=== PATIENT | female | born 1950 | race Caucasian/White ===

== ENCOUNTER 2017-09-28 16:51 | Inpatient (IN) ==
[2017-09-28] MEDS ORDERED: SODIUM CHLORIDE 0.9% 500 ML IV STA (17:18)
[2017-09-28 17:54] LABS: Basophils % 0.1 % (0.0-0.8); Eosinophils % 0.4 % (0.00-10.9); Hematocrit 33.8 VOL% (35.7-47.0); Hemoglobin 10.5 GM/DL (12.0-16.0); Immature Granulocytes % 0.6 %; Immature Granulocytes Absolute 0.05 #; Lymphocytes # 0.6 10*3/uL (1.4-4.0); Lymphocytes % 7.6 % (21.3-54.2); Mean Corpuscular HGB Conc 31.1 GM/DL (32-36); Mean Corpuscular Hemoglobin 29 PG (27-34); Mean Corpuscular Volume 93.9 FL (87-102); Monocytes # 0.4 10*3/uL (0.11-0.8); Monocytes % 4.8 % (1.7-12.7); Neutrophils # 7.3 10*3/uL (1.4-7.4); Neutrophils % 86.5 % (38.7-73.9); Platelet Count 221 T/CUMM (130-400); Red Cell Distribution Width 15.9 % (9.3-17.3); White Blood Count 8.4 T/CUMM (4-12)
[2017-09-28 18:00] LABS: INR 0.9; PT Patient Result 9.4 SECS
[2017-09-28 18:24] LABS: Alanine Aminotransferase 27 U/L (13-56); Albumin 3.4 G/DL (3.4-5.0); Alkaline Phosphatase 65 U/L (45-117); Aspartate Amino Transferase 25 U/L (0-37); Bilirubin,Total < 0.39 MG/DL (0.2-1.0); Blood Urea Nitrogen 34 MG/DL (7-18); Glucose 129 MG/DL (74-106); Osmolality,Calculated 288.4 MOS/KG (273-304); Sodium 140 MMOL/L (136-145); Total Protein 7.1 G/DL (6.4-8.3)
[2017-09-28 18:25] LABS: Potassium 6.1 MMOL/L (3.5-5.1)
[2017-09-28] MEDS ORDERED: CALCIUM CHLORIDE 1,000 MG/10 ML SYRINGE IV STA (18:30)
[2017-09-28] MEDS ORDERED: SODIUM POLYSTYRENE SULFATE 15 GM/60 ML BOTTLE PO STA (18:31)
[2017-09-28] MEDS ORDERED: ACETAMINOPHEN 325 MG TABLET PO PRN (19:47)
[2017-09-28] MEDS ORDERED: GLUCAGON 1 MG VIAL IM PRN (19:47)
[2017-09-28] MEDS ORDERED: DEXTROSE 50% 25 GM/50 ML VIAL IV PRN (19:47)
[2017-09-28] MEDS: ALBUTEROL/IPRATROPIUM 3 ML NEB RESP TX SCH (21:00)
[2017-09-28] MEDS ORDERED: ALBUTEROL 2.5 MG/3 ML NEB RESP TX PRN (21:00)
[2017-09-28] MEDS ORDERED: levETIRAcetam 500 MG TABLET PO SCH (21:00)
[2017-09-28] MEDS: SODIUM CHLORIDE 0.9% 1,000 ML IV SCH (21:02)
[2017-09-28] MEDS: ASPIRIN EC 81 MG TABLET PO SCH (21:46)
[2017-09-28] MEDS: NIACIN 500 MG TABLET PO SCH (21:46)
[2017-09-28] MEDS: METOPROLOL TARTRATE 25 MG TABLET PO SCH (21:46)
[2017-09-28] MEDS: THEOPHYLLINE ER 300 MG TABLET PO SCH (21:47)
[2017-09-28] MEDS: ENOXAPARIN 40 MG/0.4 ML SYRINGE SUBCUT SCH (21:48)
[2017-09-29] MEDS ORDERED: IPRATROPIUM 500 MCG/2.5 ML NEB RESP TX PRN
[2017-09-29] MEDS: INSULIN LISPRO 100 UNIT/ML SUBCUT SCH ×6 (00:25→20:35)
[2017-09-29] MEDS: ALBUTEROL/IPRATROPIUM 3 ML NEB RESP TX SCH ×4 (01:00→18:59)
[2017-09-29] MEDS: SODIUM CHLORIDE 0.9% 1,000 ML IV SCH ×2 (05:03→13:33)
[2017-09-29 05:33] LABS: Basophils % 0.2 % (0.0-0.8); Eosinophils # 0.2 10*3/uL (0.0-0.87); Eosinophils % 2.6 % (0.00-10.9); Hematocrit 27.2 VOL% (35.7-47.0); Immature Granulocytes % 0.5 %; Immature Granulocytes Absolute 0.03 #; Lymphocytes # 1.4 10*3/uL (1.4-4.0); Lymphocytes % 21.6 % (21.3-54.2); Mean Corpuscular HGB Conc 31.3 GM/DL (32-36); Mean Corpuscular Hemoglobin 29 PG (27-34); Mean Corpuscular Volume 93.5 FL (87-102); Mean Platelet Volume 10.5 FL (9.6-12.0); Monocytes # 0.4 10*3/uL (0.11-0.8); Monocytes % 5.6 % (1.7-12.7); Neutrophils # 4.5 10*3/uL (1.4-7.4); Neutrophils % 69.5 % (38.7-73.9); Platelet Count 178 T/CUMM (130-400); Red Blood Count 2.91 MC/CUMM (3.8-5.5); Red Cell Distribution Width 15.9 % (9.3-17.3); White Blood Count 6.5 T/CUMM (4-12)
[2017-09-29 05:49] LABS: Hemoglobin 8.5 GM/DL (12.0-16.0)
[2017-09-29 05:57] LABS: Blood Urea Nitrogen 27 MG/DL (7-18); Calcium 8.7 MG/DL (8.5-10.1); Glucose 86 MG/DL (74-106); Osmolality,Calculated 289.8 MOS/KG (273-304); Potassium 5.1 MMOL/L (3.5-5.1); Sodium 144 MMOL/L (136-145)
[2017-09-29 06:03] LABS: Risk Ratio 1.75; Thyroid Stimulating Hormone 0.868 uIU/ml (0.358-3.74); VLDL CHOLESTEROL 11.8 MG/DL
[2017-09-29] MEDS ORDERED: Fluticasone/Vilanterol [Breo Ellipta 200-25 Mcg Inh] INH SCH (09:00)
[2017-09-29] MEDS: METOPROLOL TARTRATE 25 MG TABLET PO SCH ×2 (10:11→21:00)
[2017-09-29] MEDS: PANTOPRAZOLE 40 MG TABLET PO SCH ×2 (10:12)
[2017-09-29] MEDS: ROSUVASTATIN 10 MG TABLET PO SCH (10:12)
[2017-09-29] MEDS: amLODIPine 5 MG TABLET PO SCH (10:12)
[2017-09-29] MEDS: THEOPHYLLINE ER 300 MG TABLET PO SCH ×2 (10:12→18:14)
[2017-09-29] MEDS: MONTELUKAST 10 MG TABLET PO SCH (10:12)
[2017-09-29] MEDS: MULTIVITAMIN (CENTRUM) TABLET PO SCH (10:12)
[2017-09-29] MEDS: FERROUS SULFATE 325 MG TABLET PO SCH (10:12)
[2017-09-29] MEDS ORDERED: metFORMIN 500 MG TABLET PO SCH (17:00)
[2017-09-29] MEDS: ASPIRIN EC 81 MG TABLET PO SCH (21:00)
[2017-09-29] MEDS ORDERED: INSULIN GLARGINE 100 UNIT/ML SUBCUT SCH (21:00)
[2017-09-29] MEDS: ENOXAPARIN 40 MG/0.4 ML SYRINGE SUBCUT SCH (21:02)
[2017-09-29] MEDS: NIACIN 500 MG TABLET PO SCH (21:02)
[2017-09-30] MEDS: INSULIN LISPRO 100 UNIT/ML SUBCUT SCH ×6 (01:02→20:26)
[2017-09-30] MEDS: ALBUTEROL/IPRATROPIUM 3 ML NEB RESP TX SCH ×4 (01:48→19:32)
[2017-09-30] MEDS: SODIUM CHLORIDE 0.9% 1,000 ML IV SCH ×2 (03:47→04:59)
[2017-09-30] MEDS: ONDANSETRON 4 MG/2 ML VIAL IV PRN ×3 (07:57→16:39)
[2017-09-30] MEDS: METOPROLOL TARTRATE 25 MG TABLET PO SCH ×2 (10:29→20:22)
[2017-09-30 13:18] LABS: % Iron Saturation 4.7 % (18-50); Ferritin 20.3 ng/ml (8-252)
[2017-09-30] MEDS: MULTIVITAMIN (CENTRUM) TABLET PO SCH (16:45)
[2017-09-30] MEDS: THEOPHYLLINE ER 300 MG TABLET PO SCH ×2 (16:45→18:14)
[2017-09-30] MEDS: ROSUVASTATIN 10 MG TABLET PO SCH (16:46)
[2017-09-30] MEDS: PANTOPRAZOLE 40 MG TABLET PO SCH ×2 (16:46)
[2017-09-30] MEDS: MONTELUKAST 10 MG TABLET PO SCH (16:46)
[2017-09-30] MEDS: FERROUS SULFATE 325 MG TABLET PO SCH (16:46)
[2017-09-30] MEDS: amLODIPine 5 MG TABLET PO SCH ×2 (19:09→20:22)
[2017-09-30] MEDS: NIACIN 500 MG TABLET PO SCH (20:23)
[2017-09-30] MEDS: ENOXAPARIN 40 MG/0.4 ML SYRINGE SUBCUT SCH (20:23)
[2017-09-30] MEDS: ASPIRIN EC 81 MG TABLET PO SCH (20:23)
[2017-10-01] MEDS: ALBUTEROL/IPRATROPIUM 3 ML NEB RESP TX SCH ×4 (01:19→19:01)
[2017-10-01] MEDS: INSULIN LISPRO 100 UNIT/ML SUBCUT SCH ×6 (05:03→20:13)
[2017-10-01] MEDS ORDERED: ceFAZolin 1,000 MG in SYRINGE 1 EACH IV ONE (06:30)
[2017-10-01] MEDS ORDERED: BACITRACIN OINT 0.9 GM PACK TOP ONE (06:53)
[2017-10-01 07:23] LABS: Basophils % 0.2 % (0.0-0.8); Hemoglobin 9.2 GM/DL (12.0-16.0); Immature Granulocytes % 0.9 %; Immature Granulocytes Absolute 0.09 #; Lymphocytes # 0.7 10*3/uL (1.4-4.0); Mean Corpuscular HGB Conc 31.7 GM/DL (32-36); Mean Corpuscular Hemoglobin 29 PG (27-34); Mean Corpuscular Volume 91.8 FL (87-102); Mean Platelet Volume 9.9 FL (9.6-12.0); Monocytes # 0.8 10*3/uL (0.11-0.8); Monocytes % 7.9 % (1.7-12.7); Neutrophils # 8.5 10*3/uL (1.4-7.4); Platelet Count 185 T/CUMM (130-400); Red Blood Count 3.16 MC/CUMM (3.8-5.5); Red Cell Distribution Width 15.6 % (9.3-17.3); White Blood Count 10.1 T/CUMM (4-12)
[2017-10-01 07:53] LABS: Calcium 8.2 MG/DL (8.5-10.1); Osmolality,Calculated 283.4 MOS/KG (273-304); Potassium 3.8 MMOL/L (3.5-5.1)
[2017-10-01] MEDS ORDERED: BUPIVACAINE SPINAL 0.75% 2 ML AMP SPINAL ONE (08:26)
[2017-10-01] MEDS ORDERED: KETOROLAC 15 MG/1 ML VIAL IV PRN (09:47)
[2017-10-01] MEDS ORDERED: MAGNESIUM HYDROXIDE SUSP 30 ML UDCUP PO PRN (09:47)
[2017-10-01] MEDS ORDERED: MORPHINE 4 MG/1 ML VIAL IV PRN (09:47)
[2017-10-01] MEDS ORDERED: ROPIVACAINE 0.5% 30 ML VIAL ONE (09:53)
[2017-10-01] MEDS ORDERED: PROPOFOL 200 MG/20 ML VIAL IV ONE (10:34)
[2017-10-01] MEDS ORDERED: ACETAMINOPHEN 1,000 MG/100 ML VIAL IV ONE (10:35)
[2017-10-01] MEDS ORDERED: SODIUM CHLORIDE 0.9% 100 ML IV ONE (10:35)
[2017-10-01] MEDS ORDERED: fentaNYL 100 MCG/2 ML VIAL ONE (10:35)
[2017-10-01] MEDS ORDERED: MIDAZOLAM 2 MG/2 ML VIAL ONE (10:35)
[2017-10-01] MEDS ORDERED: ONDANSETRON 4 MG/2 ML VIAL ONE (10:36)
[2017-10-01] MEDS: FERROUS SULFATE 325 MG TABLET PO SCH (10:57)
[2017-10-01] MEDS: THEOPHYLLINE ER 300 MG TABLET PO SCH ×2 (10:57→17:27)
[2017-10-01] MEDS: MULTIVITAMIN (CENTRUM) TABLET PO SCH (10:58)
[2017-10-01] MEDS: MONTELUKAST 10 MG TABLET PO SCH (10:58)
[2017-10-01] MEDS: PANTOPRAZOLE 40 MG TABLET PO SCH ×2 (10:58→12:50)
[2017-10-01] MEDS: ROSUVASTATIN 10 MG TABLET PO SCH (10:58)
[2017-10-01] MEDS: amLODIPine 5 MG TABLET PO SCH ×2 (10:59→20:13)
[2017-10-01] MEDS: METOPROLOL TARTRATE 25 MG TABLET PO SCH ×2 (10:59→20:13)
[2017-10-01] MEDS ORDERED: DEXTROSE 50% 25 GM/50 ML VIAL IV PRN (15:59)
[2017-10-01] MEDS: ceFAZolin 1,000 MG in SYRINGE 1 EACH IV SCH (17:18)
[2017-10-01] MEDS: ENOXAPARIN 40 MG/0.4 ML SYRINGE SUBCUT SCH (20:12)
[2017-10-01] MEDS: ASPIRIN EC 81 MG TABLET PO SCH (20:13)
[2017-10-01] MEDS: IRON (CARBONYL) 45 MG TABLET PO SCH (20:16)
[2017-10-01] MEDS: NIACIN 500 MG TABLET PO SCH (21:43)
[2017-10-02] MEDS: INSULIN LISPRO 100 UNIT/ML SUBCUT SCH ×4 (00:15→12:43)
[2017-10-02] MEDS: ceFAZolin 1,000 MG in SYRINGE 1 EACH IV SCH (00:16)
[2017-10-02] MEDS: ALBUTEROL/IPRATROPIUM 3 ML NEB RESP TX SCH ×2 (00:51→07:25)
[2017-10-02] MEDS: SODIUM CHLORIDE 0.9% 1,000 ML IV SCH ×2 (06:39→12:42)
[2017-10-02] MEDS: ONDANSETRON 4 MG/2 ML VIAL IV PRN (07:09)
[2017-10-02 09:05] VITALS: BP 132/70
[2017-10-02] MEDS: MULTIVITAMIN (CENTRUM) TABLET PO SCH (09:43)
[2017-10-02] MEDS: FERROUS SULFATE 325 MG TABLET PO SCH (09:43)
[2017-10-02] MEDS: MONTELUKAST 10 MG TABLET PO SCH (09:43)
[2017-10-02] MEDS: amLODIPine 5 MG TABLET PO SCH (09:43)
[2017-10-02] MEDS: ROSUVASTATIN 10 MG TABLET PO SCH (09:43)
[2017-10-02] MEDS: PANTOPRAZOLE 40 MG TABLET PO SCH ×2 (09:43→09:44)
[2017-10-02] MEDS: METOPROLOL TARTRATE 25 MG TABLET PO SCH (09:43)
[2017-10-02] MEDS: THEOPHYLLINE ER 300 MG TABLET PO SCH (09:43)
[2017-10-02] MEDS: IRON (CARBONYL) 45 MG TABLET PO SCH (09:44)
== END 2017-10-02 12:42 | disposition home or self-care (01) | DRG 983 ==
LOC: EDBD → EDUNIT# → N.EDINP 16:51 → N.ED 16:51 → SUATTDRO 18:50 → N.4E 20:16
PROVIDERS: ADMIT Internal Medicine; ATTEND Internal Medicine

== ENCOUNTER 2020-01-12 13:50 | Inpatient (IN) ==
[2020-01-12] MEDS ORDERED: SODIUM CHLORIDE 0.9% 500 ML IV STA (14:21)
[2020-01-12] MEDS ORDERED: LORazepam 2 MG/1 ML VIAL IV STA (14:21)
[2020-01-12 14:55] LABS: Basophils % 0.3 % (0.0-0.8); Hematocrit 31.4 VOL% (35.7-47.0); Immature Granulocytes % 0.7 %; Immature Granulocytes Absolute 0.05 #; Lymphocytes # 0.3 10*3/uL (1.4-4.0); Lymphocytes % 3.6 % (21.3-54.2); Mean Corpuscular HGB Conc 31.8 GM/DL (32-36); Mean Corpuscular Volume 94.9 FL (87-102); Mean Platelet Volume 9.9 FL (9.6-12.0); Monocytes % 8.5 % (1.7-12.7); Neutrophils % 86.9 % (38.7-73.9); Platelet Count 173 T/CUMM (130-400); Red Blood Count 3.31 MC/CUMM (3.8-5.5); Red Cell Distribution Width 13.8 % (9.3-17.3)
[2020-01-12 15:18] LABS: Alanine Aminotransferase 9 U/L (13-56); Albumin 2.9 G/DL (3.4-5.0); Alkaline Phosphatase 107 U/L (45-117); Aspartate Amino Transferase 20 U/L (0-37); Bilirubin,Total < 0.39 MG/DL (0.2-1.0); Blood Urea Nitrogen 84 MG/DL (7-18); Calcium 8.1 MG/DL (8.5-10.1); Estimated Glom Filtration Rate 3 ML/MIN; Glucose 359 MG/DL (74-106); Osmolality,Calculated 309.1 MOS/KG (273-304); Troponin I < 0.015 NG/ML (0.00-0.045)
[2020-01-12 15:21] LABS: Lymphocytes 3 % (20-55); Segmented Neutrophils 89 % (50-85); Total Cells Counted 100
[2020-01-12 15:23] LABS: Anisocytosis Slight; Hypochromasia Slight
[2020-01-12 15:24] LABS: Platelet Estimate Adequate; Polychromasia Slight
[2020-01-12] MEDS ORDERED: SODIUM CHLORIDE 0.9% 1,000 ML IV STA ×2 (15:27→15:46)
[2020-01-12] MEDS ORDERED: SODIUM BICARBONATE 50 MEQ/50 ML VIAL IV STA (15:31)
[2020-01-12] MEDS ORDERED: INSULIN REGULAR 100 UNIT/ML SUBCUT STA (15:33)
[2020-01-12 16:09] LABS: Bilirubin,Urine Negative (Negative); Blood, Urine Small mg/dL (Negative); Glucose,Urine (UA) Negative (Negative); Ketones,Urine Negative (Negative); Nitrite,Urine Negative (Negative); Protein,Urine 30 MG/DL; RBC,Urine 7 /HPF (0-4); Squamous Epithelial Cell,Urine Occasional /HPF (0-10); Urine Appearance CLOUDY (Clear); Urine Color Yellow (Yellow); Urine Specific Gravity 1.014 (1.001-1.035); Urine Urobilinogen < 2.0 EU/DL (0.2-1.0); WBC,Urine 32 /HPF (0-6)
[2020-01-12 16:28] LABS: Barbiturates Screen,Urine Negative (Negative); Benzodiazepines Screen,Urine Negative (Negative); Cannabinoid Screen,Urine Negative (Negative); Opiate Screen,Urine Positive (Negative); Phencyclidine Screen,Urine Negative (Negative)
[2020-01-12 17:15] LABS: ABG Base Excess -15.3 MMOL/L (-2.5-2.5); ABG HCO3 12.6 MMOL/L (20-26); ABG PCO2 47.7 MM HG (35-48); ABG PO2 74.2 MM HG (80-95); ABG TCO2 13.9 MMOL/L (23-27); Allen Test Positive
[2020-01-12 17:17] LABS: ABG PH 7.084 (7.35-7.45)
[2020-01-12 19:25] LABS: Calcium 7.5 MG/DL (8.5-10.1); Osmolality,Calculated 306.1 MOS/KG (273-304)
[2020-01-12] MEDS ORDERED: DEXTROSE 50% 25 GM/50 ML VIAL IV PRN (19:55)
[2020-01-12] MEDS ORDERED: GLUCAGON 1 MG VIAL IM PRN (19:55)
[2020-01-12] MEDS ORDERED: ALBUTEROL 2.5 MG/3 ML NEB RESP TX PRN (20:01)
[2020-01-12] MEDS ORDERED: INSULIN LISPRO 100 UNIT/ML SUBCUT SCH ×3 (20:05→22:00)
[2020-01-12] MEDS: SODIUM BICARB INJ 100 MEQ in STERILE WATER INJ 1,000 ML IV SCH (20:50)
[2020-01-12] MEDS: INSULIN LISPRO 100 UNIT/ML SUBCUT SCH (21:23)
[2020-01-12] MEDS: ASPIRIN EC 81 MG TABLET PO SCH (21:24)
[2020-01-12] MEDS: ENOXAPARIN 30 MG/0.3 ML SYRINGE SUBCUT SCH (21:30)
[2020-01-12] MEDS: HYDROCORTISONE 100 MG VIAL IV SCH (21:30)
[2020-01-13] MEDS: INSULIN LISPRO 100 UNIT/ML SUBCUT SCH ×7 (00:53→23:21)
[2020-01-13 03:51] LABS: Basophils % 0.2 % (0.0-0.8); Hematocrit 27.8 VOL% (35.7-47.0); Hemoglobin 9.2 GM/DL (12.0-16.0); Immature Granulocytes % 0.7 %; Immature Granulocytes Absolute 0.04 #; Lymphocytes # 0.3 10*3/uL (1.4-4.0); Lymphocytes % 5.3 % (21.3-54.2); Mean Corpuscular HGB Conc 33.1 GM/DL (32-36); Mean Corpuscular Volume 94.2 FL (87-102); Mean Platelet Volume 9.9 FL (9.6-12.0); Monocytes % 7.2 % (1.7-12.7); Neutrophils % 86.6 % (38.7-73.9); Platelet Count 128 T/CUMM (130-400); Red Blood Count 2.95 MC/CUMM (3.8-5.5); Red Cell Distribution Width 13.9 % (9.3-17.3); White Blood Count 5.7 T/CUMM (4-12)
[2020-01-13 04:13] LABS: Alanine Aminotransferase < 9 U/L (13-56); Albumin 2.3 G/DL (3.4-5.0); Alkaline Phosphatase 90 U/L (45-117); Aspartate Amino Transferase 19 U/L (0-37); Bilirubin,Total < 0.39 MG/DL (0.2-1.0); Blood Urea Nitrogen 76 MG/DL (7-18); Calcium 7.3 MG/DL (8.5-10.1); Estimated Glom Filtration Rate 3 ML/MIN; Glucose 152 MG/DL (74-106); Osmolality,Calculated 298.8 MOS/KG (273-304); Total Protein 5.6 G/DL (6.4-8.3); Troponin I 0.016 NG/ML (0.00-0.045)
[2020-01-13] MEDS: HYDROCORTISONE 100 MG VIAL IV SCH (04:50)
[2020-01-13] MEDS: IPRATROPIUM 500 MCG/2.5 ML NEB RESP TX SCH ×4 (07:06→19:39)
[2020-01-13] MEDS: SODIUM BICARB INJ 100 MEQ in STERILE WATER INJ 1,000 ML IV SCH ×2 (07:07→17:30)
[2020-01-13] MEDS: THEOPHYLLINE ER 300 MG TABLET PO SCH ×2 (09:18→18:20)
[2020-01-13] MEDS: PANTOPRAZOLE 40 MG TABLET PO SCH (09:18)
[2020-01-13] MEDS: methylPREDNISolone SOD SUC 125 MG/2 ML VIAL IV SCH ×2 (11:49→22:20)
[2020-01-13] MEDS: ASPIRIN EC 81 MG TABLET PO SCH (20:36)
[2020-01-13] MEDS: ENOXAPARIN 30 MG/0.3 ML SYRINGE SUBCUT SCH (20:36)
[2020-01-14 04:01] LABS: Hematocrit 27.4 VOL% (35.7-47.0); Immature Granulocytes % 0.3 %; Immature Granulocytes Absolute 0.02 #; Lymphocytes # 0.2 10*3/uL (1.4-4.0); Lymphocytes % 3.5 % (21.3-54.2); Mean Corpuscular HGB Conc 32.8 GM/DL (32-36); Mean Corpuscular Volume 91.9 FL (87-102); Monocytes % 1.7 % (1.7-12.7); Neutrophils % 94.5 % (38.7-73.9); Platelet Count 164 T/CUMM (130-400); Red Blood Count 2.98 MC/CUMM (3.8-5.5); Red Cell Distribution Width 13.7 % (9.3-17.3); White Blood Count 5.7 T/CUMM (4-12)
[2020-01-14 04:21] LABS: Calcium 7.9 MG/DL (8.5-10.1)
[2020-01-14 04:25] LABS: Lymphocytes 4 % (20-55); Platelet Estimate Adequate; Segmented Neutrophils 94 % (50-85); Total Cells Counted 100
[2020-01-14 04:26] LABS: Hypochromasia 1+; Microcytosis 1+
[2020-01-14] MEDS: SODIUM BICARB INJ 100 MEQ in STERILE WATER INJ 1,000 ML IV SCH (05:25)
[2020-01-14] MEDS: INSULIN LISPRO 100 UNIT/ML SUBCUT SCH ×5 (05:35→21:36)
[2020-01-14] MEDS: IPRATROPIUM 500 MCG/2.5 ML NEB RESP TX SCH ×4 (07:34→19:36)
[2020-01-14] MEDS: THEOPHYLLINE ER 300 MG TABLET PO SCH ×2 (08:05→16:59)
[2020-01-14] MEDS: PANTOPRAZOLE 40 MG TABLET PO SCH (08:05)
[2020-01-14] MEDS: methylPREDNISolone SOD SUC 125 MG/2 ML VIAL IV SCH (11:20)
[2020-01-14] MEDS: SODIUM BICARBONATE 650 MG TABLET PO SCH ×2 (14:34→21:36)
[2020-01-14] MEDS: ESCITALOPRAM 10 MG TABLET PO SCH (21:36)
[2020-01-14] MEDS: ENOXAPARIN 30 MG/0.3 ML SYRINGE SUBCUT SCH (21:36)
[2020-01-14] MEDS: ASPIRIN EC 81 MG TABLET PO SCH (21:36)
[2020-01-15] MEDS: methylPREDNISolone SOD SUC 125 MG/2 ML VIAL IV SCH ×3 (01:37→22:31)
[2020-01-15 05:59] LABS: Hemoglobin 8.4 GM/DL (12.0-16.0); Immature Granulocytes % 0.6 %; Immature Granulocytes Absolute 0.03 #; Lymphocytes # 0.2 10*3/uL (1.4-4.0); Lymphocytes % 4.2 % (21.3-54.2); Mean Corpuscular HGB Conc 33.6 GM/DL (32-36); Mean Corpuscular Volume 89.9 FL (87-102); Monocytes % 3.8 % (1.7-12.7); Neutrophils % 91.4 % (38.7-73.9); Platelet Count 161 T/CUMM (130-400); Red Blood Count 2.78 MC/CUMM (3.8-5.5); Red Cell Distribution Width 13.3 % (9.3-17.3); White Blood Count 4.7 T/CUMM (4-12)
[2020-01-15 06:16] LABS: Calcium 7.7 MG/DL (8.5-10.1); Osmolality,Calculated 312.8 MOS/KG (273-304)
[2020-01-15 06:33] LABS: Hypochromasia 1+; Lymphocytes 5 % (20-55); Microcytosis 1+; Platelet Estimate Adequate; Segmented Neutrophils 93 % (50-85); Total Cells Counted 100
[2020-01-15] MEDS: IPRATROPIUM 500 MCG/2.5 ML NEB RESP TX SCH ×4 (07:14→18:48)
[2020-01-15] MEDS: INSULIN LISPRO 100 UNIT/ML SUBCUT SCH ×4 (08:17→22:29)
[2020-01-15] MEDS: PANTOPRAZOLE 40 MG TABLET PO SCH (08:19)
[2020-01-15] MEDS: THEOPHYLLINE ER 300 MG TABLET PO SCH ×2 (08:19→16:49)
[2020-01-15] MEDS: SODIUM BICARBONATE 650 MG TABLET PO SCH ×3 (08:19→22:29)
[2020-01-15] MEDS: ASPIRIN EC 81 MG TABLET PO SCH (22:29)
[2020-01-15] MEDS: ESCITALOPRAM 10 MG TABLET PO SCH (22:29)
[2020-01-15] MEDS: ENOXAPARIN 30 MG/0.3 ML SYRINGE SUBCUT SCH (22:30)
[2020-01-16 05:53] LABS: Hemoglobin 8.3 GM/DL (12.0-16.0); Immature Granulocytes % 0.5 %; Immature Granulocytes Absolute 0.02 #; Lymphocytes # 0.2 10*3/uL (1.4-4.0); Lymphocytes % 4.6 % (21.3-54.2); Mean Corpuscular HGB Conc 33.2 GM/DL (32-36); Mean Corpuscular Volume 91.6 FL (87-102); Mean Platelet Volume 10.1 FL (9.6-12.0); Monocytes % 3.3 % (1.7-12.7); Neutrophils % 91.6 % (38.7-73.9); Platelet Count 167 T/CUMM (130-400); Red Blood Count 2.73 MC/CUMM (3.8-5.5); Red Cell Distribution Width 13.4 % (9.3-17.3); White Blood Count 3.7 T/CUMM (4-12)
[2020-01-16 06:06] LABS: Calcium 7.7 MG/DL (8.5-10.1); Osmolality,Calculated 311.5 MOS/KG (273-304)
[2020-01-16 06:19] LABS: Hypochromasia 1+; Lymphocytes 2 % (20-55); Microcytosis 1+; Nucleated Red Blood Cells 1 (0-5); Platelet Estimate Adequate; Segmented Neutrophils 96 % (50-85); Total Cells Counted 100
[2020-01-16] MEDS: IPRATROPIUM 500 MCG/2.5 ML NEB RESP TX SCH ×4 (07:49→19:36)
[2020-01-16] MEDS: THEOPHYLLINE ER 300 MG TABLET PO SCH ×2 (08:59→16:26)
[2020-01-16] MEDS: SODIUM BICARBONATE 650 MG TABLET PO SCH ×3 (09:00→21:18)
[2020-01-16] MEDS: PANTOPRAZOLE 40 MG TABLET PO SCH (09:00)
[2020-01-16] MEDS: INSULIN LISPRO 100 UNIT/ML SUBCUT SCH ×4 (09:00→21:22)
[2020-01-16] MEDS: methylPREDNISolone SOD SUC 125 MG/2 ML VIAL IV SCH (12:33)
[2020-01-16] MEDS: methylPREDNISolone SOD SUC 40 MG/1 ML VIAL IV SCH (20:45)
[2020-01-16] MEDS: ENOXAPARIN 30 MG/0.3 ML SYRINGE SUBCUT SCH (21:18)
[2020-01-16] MEDS: ESCITALOPRAM 10 MG TABLET PO SCH (21:18)
[2020-01-16] MEDS: ASPIRIN EC 81 MG TABLET PO SCH (21:18)
[2020-01-17 05:51] LABS: Hematocrit 25.3 VOL% (35.7-47.0); Hemoglobin 8.3 GM/DL (12.0-16.0); Immature Granulocytes % 0.6 %; Immature Granulocytes Absolute 0.02 #; Lymphocytes # 0.1 10*3/uL (1.4-4.0); Mean Corpuscular HGB Conc 32.8 GM/DL (32-36); Mean Corpuscular Volume 91.3 FL (87-102); Mean Platelet Volume 9.7 FL (9.6-12.0); Monocytes % 6.6 % (1.7-12.7); Neutrophils % 88.8 % (38.7-73.9); Platelet Count 175 T/CUMM (130-400); Red Blood Count 2.77 MC/CUMM (3.8-5.5); Red Cell Distribution Width 13.3 % (9.3-17.3); White Blood Count 3.5 T/CUMM (4-12)
[2020-01-17 06:07] LABS: Calcium 7.8 MG/DL (8.5-10.1); Osmolality,Calculated 307.7 MOS/KG (273-304)
[2020-01-17 06:09] LABS: Uric Acid 7.8 MG/DL (2.6-6.0)
[2020-01-17 06:21] LABS: Lymphocytes 4 % (20-55); Platelet Estimate Normal; Segmented Neutrophils 91 % (50-85); Total Cells Counted 100
[2020-01-17 06:22] LABS: Hypochromasia 1+
[2020-01-17] MEDS: IPRATROPIUM 500 MCG/2.5 ML NEB RESP TX SCH ×4 (07:58→19:00)
[2020-01-17] MEDS: THEOPHYLLINE ER 300 MG TABLET PO SCH ×2 (08:10→16:40)
[2020-01-17] MEDS: methylPREDNISolone SOD SUC 40 MG/1 ML VIAL IV SCH ×2 (08:10→20:11)
[2020-01-17] MEDS: PANTOPRAZOLE 40 MG TABLET PO SCH (08:10)
[2020-01-17] MEDS: INSULIN LISPRO 100 UNIT/ML SUBCUT SCH ×4 (08:10→20:34)
[2020-01-17] MEDS: SODIUM BICARBONATE 650 MG TABLET PO SCH ×2 (08:10→16:39)
[2020-01-17 14:09] LABS: Bilirubin,Urine Negative (Negative); Blood, Urine Moderate mg/dL (Negative); Glucose,Urine (UA) 50 mg/dL (Negative); Ketones,Urine Negative (Negative); Mucus,Urine Occasional /LPF (Occasional); Nitrite,Urine Negative (Negative); Protein,Urine Negative; RBC,Urine 8 /HPF (0-4); Squamous Epithelial Cell,Urine Occasional /HPF (0-10); Urine Appearance CLOUDY (Clear); Urine Color Yellow (Yellow); Urine Specific Gravity 1.012 (1.001-1.035); Urine Urobilinogen < 2.0 EU/DL (0.2-1.0); WBC,Urine 601 /HPF (0-6)
[2020-01-17] MEDS ORDERED: MAGNESIUM SULF RIDER 4 GM in PREMIX 1 EACH IV PRN (14:15)
[2020-01-17] MEDS ORDERED: MAGNESIUM SULF RIDER 2 GM in PREMIX 1 EACH IV PRN (14:15)
[2020-01-17] MEDS ORDERED: POTASSIUM CHLORIDE RIDER 10 MEQ in PREMIX 1 EACH IV PRN (14:15)
[2020-01-17] MEDS: POTASSIUM CHLORIDE 20 MEQ TABLET PO PRN ×3 (14:48→18:38)
[2020-01-17] MEDS: ESCITALOPRAM 10 MG TABLET PO SCH (20:11)
[2020-01-17] MEDS: ASPIRIN EC 81 MG TABLET PO SCH (20:11)
[2020-01-17] MEDS: ENOXAPARIN 30 MG/0.3 ML SYRINGE SUBCUT SCH (20:12)
[2020-01-18 06:01] LABS: Hematocrit 27.2 VOL% (35.7-47.0); Hemoglobin 8.6 GM/DL (12.0-16.0); Immature Granulocytes % 0.5 %; Immature Granulocytes Absolute 0.02 #; Lymphocytes # 0.2 10*3/uL (1.4-4.0); Lymphocytes % 4.4 % (21.3-54.2); Mean Corpuscular HGB Conc 31.6 GM/DL (32-36); Mean Corpuscular Volume 93.5 FL (87-102); Mean Platelet Volume 9.8 FL (9.6-12.0); Monocytes % 8.1 % (1.7-12.7); Platelet Count 191 T/CUMM (130-400); Red Blood Count 2.91 MC/CUMM (3.8-5.5); Red Cell Distribution Width 13.2 % (9.3-17.3); White Blood Count 3.8 T/CUMM (4-12)
[2020-01-18 06:24] LABS: Hypochromasia 1+; Lymphocytes 8 % (20-55); Microcytosis 1+; Myelocytes 1 %; Segmented Neutrophils 84 % (50-85); Total Cells Counted 100
[2020-01-18 06:25] LABS: Platelet Estimate Adequate
[2020-01-18 06:26] LABS: Albumin 2.2 G/DL (3.4-5.0); Osmolality,Calculated 311.4 MOS/KG (273-304); Total Protein 5.5 G/DL (6.4-8.3)
[2020-01-18] MEDS: IPRATROPIUM 500 MCG/2.5 ML NEB RESP TX SCH ×4 (07:20→19:17)
[2020-01-18] MEDS ORDERED: ONDANSETRON 4 MG/2 ML VIAL IV PRN (08:10)
[2020-01-18] MEDS: INSULIN LISPRO 100 UNIT/ML SUBCUT SCH ×4 (09:06→22:53)
[2020-01-18] MEDS: methylPREDNISolone SOD SUC 40 MG/1 ML VIAL IV SCH ×2 (09:06→22:50)
[2020-01-18] MEDS: THEOPHYLLINE ER 300 MG TABLET PO SCH ×2 (09:06→17:28)
[2020-01-18] MEDS: PANTOPRAZOLE 40 MG TABLET PO SCH (09:06)
[2020-01-18] MEDS: ASPIRIN EC 81 MG TABLET PO SCH (22:53)
[2020-01-18] MEDS: ESCITALOPRAM 10 MG TABLET PO SCH (22:54)
[2020-01-18] MEDS: ENOXAPARIN 30 MG/0.3 ML SYRINGE SUBCUT SCH (22:54)
[2020-01-19] MEDS: IPRATROPIUM 500 MCG/2.5 ML NEB RESP TX SCH (07:17)
[2020-01-19 07:41] VITALS: BP 149/67
[2020-01-19 08:45] LABS: Calcium 8.2 MG/DL (8.5-10.1); Osmolality,Calculated 305.3 MOS/KG (273-304)
[2020-01-19] MEDS: THEOPHYLLINE ER 300 MG TABLET PO SCH (09:01)
[2020-01-19] MEDS: methylPREDNISolone SOD SUC 40 MG/1 ML VIAL IV SCH (09:01)
[2020-01-19] MEDS: INSULIN LISPRO 100 UNIT/ML SUBCUT SCH (09:01)
[2020-01-19] MEDS: PANTOPRAZOLE 40 MG TABLET PO SCH (09:01)
== END 2020-01-19 10:14 | disposition home health service (06) | DRG 682 ==
LOC: N.ED 13:50 → SUATTDRO 18:34 → N.EDINP 18:34 → N.ICU 19:56 → N.5E 01-14 14:29
PROVIDERS: ADMIT Internal Medicine; ATTEND Family Medicine

== ENCOUNTER 2020-03-06 00:33 | Inpatient (IN) ==
[2020-03-06 01:12] LABS: Basophils % 1.1 % (0.0-0.8); Eosinophils # 0.2 10*3/uL (0.0-0.87); Eosinophils % 4.7 % (0.00-10.9); Hematocrit 29.1 VOL% (35.7-47.0); Immature Granulocytes % 0.8 %; Immature Granulocytes Absolute 0.03 #; Lymphocytes # 0.8 10*3/uL (1.4-4.0); Lymphocytes % 20.1 % (21.3-54.2); Mean Corpuscular HGB Conc 30.9 GM/DL (32-36); Mean Platelet Volume 10.7 FL (9.6-12.0); Monocytes % 11.6 % (1.7-12.7); Neutrophils % 61.7 % (38.7-73.9); Platelet Count 203 T/CUMM (130-400); Red Blood Count 2.97 MC/CUMM (3.8-5.5); Red Cell Distribution Width 13.8 % (9.3-17.3); White Blood Count 3.8 T/CUMM (4-12)
[2020-03-06 01:33] LABS: Alanine Aminotransferase 17 U/L (13-56); Albumin 3.5 G/DL (3.4-5.0); Alkaline Phosphatase 86 U/L (45-117); Aspartate Amino Transferase 25 U/L (0-37); Bilirubin,Total < 0.39 MG/DL (0.2-1.0); Blood Urea Nitrogen 132 MG/DL (7-18); Carbon Dioxide 14 MMOL/L (21-32); Estimated Glom Filtration Rate 5 ML/MIN; Glucose 250 MG/DL (74-106); Osmolality,Calculated 318.2 MOS/KG (273-304); Potassium 5.3 MMOL/L (3.5-5.1); Sodium 134 MMOL/L (136-145); Total Protein 7.4 G/DL (6.4-8.3)
[2020-03-06] MEDS ORDERED: SODIUM CHLORIDE 0.9% 1,000 ML IV STA (01:41)
[2020-03-06] MEDS ORDERED: DEXTROSE 50% 25 GM/50 ML VIAL IV PRN ×2 (02:01)
[2020-03-06] MEDS ORDERED: GLUCAGON 1 MG VIAL IM PRN ×2 (02:01)
[2020-03-06] MEDS ORDERED: SODIUM POLYSTYRENE SULFATE 15 GM/60 ML BOTTLE PO STA (02:14)
[2020-03-06] MEDS ORDERED: SODIUM BICARB INJ 50 MEQ in SODIUM CHLORIDE 0.9% 1,000 ML IV SCH (02:30)
[2020-03-06] MEDS: SODIUM BICARB INJ 50 MEQ in DEXTROSE 5% 1,000 ML IV SCH ×3 (03:09→16:53)
[2020-03-06] MEDS ORDERED: ALBUTEROL 2.5 MG/3 ML NEB RESP TX PRN (03:11)
[2020-03-06 03:57] LABS: Basophils % 0.6 % (0.0-0.8); Eosinophils # 0.1 10*3/uL (0.0-0.87); Eosinophils % 2.5 % (0.00-10.9); Hematocrit 23.7 VOL% (35.7-47.0); Hemoglobin 7.4 GM/DL (12.0-16.0); Immature Granulocytes % 0.6 %; Immature Granulocytes Absolute 0.02 #; Lymphocytes # 0.5 10*3/uL (1.4-4.0); Lymphocytes % 13.3 % (21.3-54.2); Mean Corpuscular HGB Conc 31.2 GM/DL (32-36); Mean Corpuscular Volume 97.9 FL (87-102); Mean Platelet Volume 10.2 FL (9.6-12.0); Monocytes % 10.2 % (1.7-12.7); Neutrophils % 72.8 % (38.7-73.9); Platelet Count 158 T/CUMM (130-400); Red Blood Count 2.42 MC/CUMM (3.8-5.5); Red Cell Distribution Width 13.9 % (9.3-17.3); White Blood Count 3.6 T/CUMM (4-12)
[2020-03-06 04:18] LABS: Calcium 8.1 MG/DL (8.5-10.1); Osmolality,Calculated 322.8 MOS/KG (273-304); Potassium 5.6 MMOL/L (3.5-5.1)
[2020-03-06] MEDS: ALBUTEROL/IPRATROPIUM 3 ML NEB RESP TX SCH ×3 (07:19→19:21)
[2020-03-06] MEDS ORDERED: TIOTROPIUM BROMIDE INH SCH (09:00)
[2020-03-06] MEDS: INSULIN REGULAR 100 UNIT/ML SUBCUT SCH ×4 (10:23→22:30)
[2020-03-06] MEDS: METOPROLOL TARTRATE 25 MG TABLET PO SCH ×2 (11:25→22:30)
[2020-03-06] MEDS: PANTOPRAZOLE 40 MG TABLET PO SCH (11:25)
[2020-03-06] MEDS: FERROUS SULFATE 325 MG TABLET PO SCH (11:25)
[2020-03-06] MEDS: THEOPHYLLINE ER 300 MG TABLET PO SCH ×2 (11:25→17:02)
[2020-03-06] MEDS: MONTELUKAST 10 MG TABLET PO SCH (11:25)
[2020-03-06] MEDS: FLUTICASONE FUROATE INH SCH (11:58)
[2020-03-06] MEDS: VILANTEROL INH SCH (11:58)
[2020-03-06] MEDS ORDERED: MAGNESIUM SULF RIDER 4 GM in PREMIX 1 EACH IV ONE (15:27)
[2020-03-06] MEDS: ONDANSETRON 4 MG/2 ML VIAL IV PRN (17:02)
[2020-03-06] MEDS: INSULIN GLARGINE 100 UNIT/ML SUBCUT SCH (22:29)
[2020-03-06] MEDS: ASPIRIN EC 81 MG TABLET PO SCH (22:30)
[2020-03-07] MEDS: ALBUTEROL/IPRATROPIUM 3 ML NEB RESP TX SCH ×4 (01:48→19:30)
[2020-03-07 03:53] LABS: ABG Base Excess -10.2 MMOL/L (-2.5-2.5); ABG HCO3 16.2 MMOL/L (20-26); ABG Oxygen Saturation 99.5 % (95-100); ABG PCO2 32.8 MM HG (35-48); ABG PH 7.285 (7.35-7.45); ABG TCO2 14.8 MMOL/L (23-27); Allen Test Positive; Pt O2 Delivery Device Room Air
[2020-03-07 06:28] LABS: Basophils % 0.8 % (0.0-0.8); Eosinophils # 0.1 10*3/uL (0.0-0.87); Hematocrit 21.1 VOL% (35.7-47.0); Hemoglobin 6.8 GM/DL (12.0-16.0); Immature Granulocytes % 0.4 %; Immature Granulocytes Absolute 0.01 #; Lymphocytes # 0.3 10*3/uL (1.4-4.0); Lymphocytes % 10.9 % (21.3-54.2); Mean Corpuscular HGB Conc 32.2 GM/DL (32-36); Mean Corpuscular Volume 95.5 FL (87-102); Mean Platelet Volume 10.4 FL (9.6-12.0); Monocytes % 12.5 % (1.7-12.7); Neutrophils % 73.4 % (38.7-73.9); Platelet Count 158 T/CUMM (130-400); Red Blood Count 2.21 MC/CUMM (3.8-5.5); Red Cell Distribution Width 13.9 % (9.3-17.3); White Blood Count 2.6 T/CUMM (4-12)
[2020-03-07 06:58] LABS: Albumin 2.6 G/DL (3.4-5.0); Bilirubin,Total 0.8 MG/DL (0.2-1.0); Calcium 8.4 MG/DL (8.5-10.1); Osmolality,Calculated 306.2 MOS/KG (273-304); Potassium 5.3 MMOL/L (3.5-5.1); Total Protein 5.6 G/DL (6.4-8.3)
[2020-03-07 07:00] LABS: % Iron Saturation 12.2 % (18-50); Ferritin 154.6 ng/ml (8-252); Uric Acid 6.2 MG/DL (2.6-6.0)
[2020-03-07 07:06] LABS: Total Protein 5.7 G/DL (6.4-8.3)
[2020-03-07] MEDS: SODIUM BICARB INJ 50 MEQ in DEXTROSE 5% 1,000 ML IV SCH (07:29)
[2020-03-07] MEDS: INSULIN REGULAR 100 UNIT/ML SUBCUT SCH ×4 (08:47→20:35)
[2020-03-07] MEDS: METOPROLOL TARTRATE 25 MG TABLET PO SCH ×2 (08:48→20:35)
[2020-03-07] MEDS: MONTELUKAST 10 MG TABLET PO SCH (08:48)
[2020-03-07] MEDS: THEOPHYLLINE ER 300 MG TABLET PO SCH ×2 (08:49→16:22)
[2020-03-07] MEDS: PANTOPRAZOLE 40 MG TABLET PO SCH (08:49)
[2020-03-07] MEDS: FERROUS SULFATE 325 MG TABLET PO SCH (08:49)
[2020-03-07] MEDS: VILANTEROL INH SCH (08:51)
[2020-03-07] MEDS: FLUTICASONE FUROATE INH SCH (08:51)
[2020-03-07] MEDS: ONDANSETRON 4 MG/2 ML VIAL IV PRN (11:42)
[2020-03-07] MEDS ORDERED: SODIUM BICARB INJ 50 MEQ in IV BAG 1 EACH IV ONE (12:00)
[2020-03-07] MEDS: SODIUM BICARB INJ 150 MEQ in DEXTROSE 5% 850 ML IV SCH ×2 (13:35→20:33)
[2020-03-07] MEDS: PROMETHAZINE 25 MG TABLET PO PRN ×2 (13:35→20:33)
[2020-03-07] MEDS: INSULIN GLARGINE 100 UNIT/ML SUBCUT SCH (20:34)
[2020-03-07] MEDS: ASPIRIN EC 81 MG TABLET PO SCH (20:35)
[2020-03-08] MEDS: SODIUM BICARB INJ 150 MEQ in DEXTROSE 5% 850 ML IV SCH ×2 (02:36→09:20)
[2020-03-08 03:24] LABS: Bacteria,Urine Occasional /HPF (Few); Bilirubin,Urine Negative (Negative); Blood, Urine Negative (Negative); Glucose,Urine (UA) Negative (Negative); Ketones,Urine Negative (Negative); Mucus,Urine Occasional /LPF (Occasional); Nitrite,Urine Negative (Negative); Protein,Urine Negative; RBC,Urine 6 /HPF (0-4); Squamous Epithelial Cell,Urine Occasional /HPF (0-10); Urine Appearance CLEAR (Clear); Urine Color Straw (Yellow); Urine Specific Gravity 1.004 (1.001-1.035); Urine Urobilinogen < 2.0 EU/DL (0.2-1.0); WBC,Urine 19 /HPF (0-6)
[2020-03-08 06:49] LABS: Random Urine Protein (Bench) 12 MG/DL (<11.9); Total Protein (Chem) 5.7 G/DL (6.4-8.3)
[2020-03-08 06:50] LABS: Immunoglobulin A (Chem) 101 MG/DL (70-400); Immunoglobulin G (Chem) 591 MG/DL (700-1600); Immunoglobulin M (Chem) 41 MG/DL (40-230)
[2020-03-08 07:11] LABS: Basophils % 0.5 % (0.0-0.8); Eosinophils % 2.2 % (0.00-10.9); Hematocrit 20.3 VOL% (35.7-47.0); Hemoglobin 6.8 GM/DL (12.0-16.0); Immature Granulocytes % 0.5 %; Immature Granulocytes Absolute 0.01 #; Lymphocytes # 0.2 10*3/uL (1.4-4.0); Lymphocytes % 10.9 % (21.3-54.2); Mean Corpuscular HGB Conc 33.5 GM/DL (32-36); Mean Platelet Volume 10.1 FL (9.6-12.0); Monocytes % 14.2 % (1.7-12.7); Neutrophils % 71.7 % (38.7-73.9); Platelet Count 137 T/CUMM (130-400); Red Blood Count 2.23 MC/CUMM (3.8-5.5); Red Cell Distribution Width 13.5 % (9.3-17.3); White Blood Count 1.8 T/CUMM (4-12)
[2020-03-08] MEDS: ALBUTEROL/IPRATROPIUM 3 ML NEB RESP TX SCH ×4 (07:15→19:48)
[2020-03-08 07:22] LABS: PT Patient Result 10.9 SECS (9.8-11.9); Partial Thromboplastin Time 24.3 SECS (23.9-33.8)
[2020-03-08] MEDS: INSULIN REGULAR 100 UNIT/ML SUBCUT SCH ×4 (07:26→21:06)
[2020-03-08 07:34] LABS: % Iron Saturation 9.5 % (18-50); Ferritin 167.1 ng/ml (8-252)
[2020-03-08 07:37] LABS: Eosinophils 8 % (0-10); Lymphocytes 8 % (20-55); Segmented Neutrophils 75 % (50-85); Total Cells Counted 100
[2020-03-08 07:38] LABS: Hypochromasia 1+; Microcytosis 1+
[2020-03-08 07:39] LABS: Platelet Estimate Adequate
[2020-03-08 07:52] LABS: Alanine Aminotransferase 12 U/L (13-56); Albumin 2.4 G/DL (3.4-5.0); Alkaline Phosphatase 66 U/L (45-117); Aspartate Amino Transferase 18 U/L (0-37); Bilirubin,Total < 0.39 MG/DL (0.2-1.0); Blood Urea Nitrogen 83 MG/DL (7-18); Calcium 7.7 MG/DL (8.5-10.1); Carbon Dioxide 33 MMOL/L (21-32); Estimated Glom Filtration Rate 7 ML/MIN; Glucose 266 MG/DL (74-106); Osmolality,Calculated 306.8 MOS/KG (273-304); Potassium 3.9 MMOL/L (3.5-5.1); Sodium 137 MMOL/L (136-145); Total Protein 5.1 G/DL (6.4-8.3)
[2020-03-08 07:59] LABS: Alpha 1 (SPE) Rel % 3.4 %; Alpha 2 (SPE) Rel % 17.3 %; Beta (SPE) Rel % 10.2 %; Gamma (SPE) Rel % 8.1 %
[2020-03-08 08:07] LABS: Albumin (SPE) 3.5 G/DL (3.2-5.3); Alpha 1 (SPE) 0.2 G/DL (0.1-0.4); Beta (SPE) 0.6 G/DL (0.5-1.1); Gamma (SPE) < 0.5 G/DL (0.7-1.7)
[2020-03-08] MEDS: TIOTROPIUM BROMIDE INH SCH (08:35)
[2020-03-08] MEDS: ACTUATION MIST INH SCH (08:35)
[2020-03-08 09:35] LABS: Immuno Free Light Chain Kappa 6.25 MG/DL (0.33-1.94); Immuno Free Light Chain Lambda 5.14 MG/DL (0.57-2.63); Immuno Free Light Chain Ratio 1.22 MG/DL (0.26-1.65)
[2020-03-08] MEDS ORDERED: DIAZEPAM 5 MG TABLET PO ONE (11:00)
[2020-03-08] MEDS ORDERED: SODIUM CHLORIDE 0.45% 1,000 ML IV SCH (11:00)
[2020-03-08] MEDS: METOPROLOL TARTRATE 25 MG TABLET PO SCH ×2 (11:27→20:17)
[2020-03-08] MEDS: VILANTEROL INH SCH (11:27)
[2020-03-08] MEDS: MONTELUKAST 10 MG TABLET PO SCH (11:27)
[2020-03-08] MEDS: CALCIUM (CARBONATE) 500 MG TABLET PO SCH (11:27)
[2020-03-08] MEDS: THEOPHYLLINE ER 300 MG TABLET PO SCH ×2 (11:27→17:42)
[2020-03-08] MEDS: FERROUS SULFATE 325 MG TABLET PO SCH (11:27)
[2020-03-08] MEDS: FLUTICASONE FUROATE INH SCH (11:27)
[2020-03-08] MEDS: PANTOPRAZOLE 40 MG TABLET PO SCH (11:27)
[2020-03-08] MEDS: ROSUVASTATIN 10 MG TABLET PO SCH (11:28)
[2020-03-08] MEDS ORDERED: SODIUM CHLORIDE 0.9% 1,000 ML IV PRN (12:31)
[2020-03-08 13:08] LABS: Basophils % 0.5 % (0.0-0.8); Eosinophils % 1.6 % (0.00-10.9); Hemoglobin 7.4 GM/DL (12.0-16.0); Immature Granulocytes % 0.5 %; Immature Granulocytes Absolute 0.01 #; Lymphocytes # 0.2 10*3/uL (1.4-4.0); Lymphocytes % 10.9 % (21.3-54.2); Mean Corpuscular HGB Conc 32.2 GM/DL (32-36); Mean Corpuscular Volume 94.3 FL (87-102); Mean Platelet Volume 10.2 FL (9.6-12.0); Monocytes % 14.5 % (1.7-12.7); Platelet Count 151 T/CUMM (130-400); Red Blood Count 2.44 MC/CUMM (3.8-5.5); Red Cell Distribution Width 13.8 % (9.3-17.3); White Blood Count 1.9 T/CUMM (4-12)
[2020-03-08 13:33] LABS: Eosinophils 4 % (0-10); Hypochromasia 1+; Lymphocytes 16 % (20-55); Segmented Neutrophils 66 % (50-85); Total Cells Counted 100
[2020-03-08 13:34] LABS: Microcytosis 1+
[2020-03-08 13:35] LABS: Atypical Lymphocytes Few; Platelet Estimate Adequate
[2020-03-08] MEDS: ACETAMINOPHEN 325 MG TABLET PO PRN (14:00)
[2020-03-08] MEDS: ASPIRIN EC 81 MG TABLET PO SCH (20:17)
[2020-03-08] MEDS: INSULIN GLARGINE 100 UNIT/ML SUBCUT SCH (21:03)
[2020-03-08] MEDS: ONDANSETRON 4 MG/2 ML VIAL IV PRN (22:34)
[2020-03-09] MEDS: PROMETHAZINE 25 MG TABLET PO PRN ×2 (00:49→08:51)
[2020-03-09 05:39] LABS: Basophils % 0.3 % (0.0-0.8); Eosinophils % 0.3 % (0.00-10.9); Hematocrit 34.9 VOL% (35.7-47.0); Immature Granulocytes % 0.6 %; Immature Granulocytes Absolute 0.02 #; Lymphocytes # 0.2 10*3/uL (1.4-4.0); Lymphocytes % 6.4 % (21.3-54.2); Mean Corpuscular HGB Conc 31.8 GM/DL (32-36); Mean Corpuscular Volume 92.8 FL (87-102); Mean Platelet Volume 10.3 FL (9.6-12.0); Monocytes % 8.7 % (1.7-12.7); Neutrophils % 83.7 % (38.7-73.9); Platelet Count 130 T/CUMM (130-400); Red Blood Count 3.76 MC/CUMM (3.8-5.5); White Blood Count 3.1 T/CUMM (4-12)
[2020-03-09 05:41] LABS: Hemoglobin 11.1 GM/DL (12.0-16.0)
[2020-03-09 06:19] LABS: Albumin 2.7 G/DL (3.4-5.0); Bilirubin,Total 0.4 MG/DL (0.2-1.0); Calcium 8.4 MG/DL (8.5-10.1); Osmolality,Calculated 303.1 MOS/KG (273-304); Potassium 3.6 MMOL/L (3.5-5.1); Total Protein 6.1 G/DL (6.4-8.3)
[2020-03-09] MEDS: ALBUTEROL/IPRATROPIUM 3 ML NEB RESP TX SCH ×4 (06:30→19:28)
[2020-03-09] MEDS: FERROUS SULFATE 325 MG TABLET PO SCH (08:40)
[2020-03-09] MEDS: METOPROLOL TARTRATE 25 MG TABLET PO SCH ×2 (08:40→21:17)
[2020-03-09] MEDS: ROSUVASTATIN 10 MG TABLET PO SCH (08:40)
[2020-03-09] MEDS: CALCIUM (CARBONATE) 500 MG TABLET PO SCH (08:41)
[2020-03-09] MEDS: THEOPHYLLINE ER 300 MG TABLET PO SCH ×2 (08:41→16:49)
[2020-03-09] MEDS: MONTELUKAST 10 MG TABLET PO SCH (08:41)
[2020-03-09] MEDS: PANTOPRAZOLE 40 MG TABLET PO SCH (08:41)
[2020-03-09] MEDS: FLUTICASONE FUROATE INH SCH (09:00)
[2020-03-09] MEDS: ACTUATION MIST INH SCH (09:00)
[2020-03-09] MEDS: TIOTROPIUM BROMIDE INH SCH (09:00)
[2020-03-09] MEDS: VILANTEROL INH SCH (09:00)
[2020-03-09] MEDS: INSULIN REGULAR 100 UNIT/ML SUBCUT SCH ×4 (09:44→21:17)
[2020-03-09] MEDS ORDERED: SUCRALFATE 1 GM/10 ML UDCUP PO SCH (16:30)
[2020-03-09] MEDS: SUCRALFATE 1 GM/10 ML UDCUP PO SCH ×2 (16:57→21:17)
[2020-03-09] MEDS: ACETAMINOPHEN 325 MG TABLET PO PRN (19:04)
[2020-03-09] MEDS: ASPIRIN EC 81 MG TABLET PO SCH (21:16)
[2020-03-09] MEDS: INSULIN GLARGINE 100 UNIT/ML SUBCUT SCH (21:18)
[2020-03-10] MEDS: ALBUTEROL/IPRATROPIUM 3 ML NEB RESP TX SCH ×3 (01:10→13:44)
[2020-03-10 05:39] LABS: Calcium 8.4 MG/DL (8.5-10.1); Osmolality,Calculated 298.3 MOS/KG (273-304); Potassium 3.5 MMOL/L (3.5-5.1)
[2020-03-10] MEDS: INSULIN REGULAR 100 UNIT/ML SUBCUT SCH ×2 (08:00→12:34)
[2020-03-10] MEDS: MONTELUKAST 10 MG TABLET PO SCH (09:42)
[2020-03-10] MEDS: CALCIUM (CARBONATE) 500 MG TABLET PO SCH (09:42)
[2020-03-10] MEDS: ROSUVASTATIN 10 MG TABLET PO SCH (09:42)
[2020-03-10] MEDS: FERROUS SULFATE 325 MG TABLET PO SCH (09:42)
[2020-03-10] MEDS: METOPROLOL TARTRATE 25 MG TABLET PO SCH (09:42)
[2020-03-10] MEDS: SUCRALFATE 1 GM/10 ML UDCUP PO SCH ×2 (09:42→12:34)
[2020-03-10] MEDS: THEOPHYLLINE ER 300 MG TABLET PO SCH (09:42)
[2020-03-10] MEDS: PANTOPRAZOLE 40 MG TABLET PO SCH (09:42)
[2020-03-10] MEDS: ACTUATION MIST INH SCH (09:44)
[2020-03-10] MEDS: FLUTICASONE FUROATE INH SCH (09:44)
[2020-03-10] MEDS: VILANTEROL INH SCH (09:44)
[2020-03-10] MEDS: TIOTROPIUM BROMIDE INH SCH (09:44)
[2020-03-10 11:44] VITALS: BP 123/57
== END 2020-03-10 16:42 | disposition home or self-care (01) | DRG 683 ==
LOC: N.ED 00:33 → SUATTDRO 02:01 → N.EDINP 02:01 → N.5E 11:40
PROVIDERS: ADMIT Internal Medicine; ATTEND Emergency Medicine